=== PATIENT | male | born 1970 | race Caucasian/White ===

== ENCOUNTER 2019-06-15 09:14 | Emergency (ER) | payer OTHER ==
[~2019-06-15] VITALS: Ht 185.4 cm; Wt 99.8 kg
[2019-06-15 09:25] VITALS: BP 127/88
[2019-06-15] MEDS ORDERED: KETOROLAC TROMETH 60MG/2ML VIAL IM ONE (10:30)
== END 2019-06-15 11:07 | disposition home or self-care (01) ==
LOC: ER 09:14
DX: M70.22 Olecranon bursitis, left elbow (principal); Y93.89 Activity, other specified
CPT/HCPCS: 73080; 96372; 99283; J1885